=== PATIENT | female | born 1975 | race Caucasian/White ===

== ENCOUNTER → 2017-03-26 | Day surgery (SDC) | payer BC ==
[~2017-03-26] VITALS: Ht 147.3 cm; Wt 62.5 kg
[~2017-03-26] MED LIST: CALCIUM CARBON600 MG PO; PERCOCET 5-3251 EACH PO; THERA-VITE W/ B1 TAB PO
--- NOTE | ~2017-03-26 | OR ---
PATIENT'S NAME: KINGA [facility] AGE: 41 Y [address] ROOM: [place] [address] LOC[place]: [facility] [place] ADMIT DATE: 03/26/2017 OR/Procedure Report DISCHARGE DATE: FAMILY PHYSICIAN: Yamel Santiago MD ATTENDING PHYSICIAN: Francisco Marie SURGEON: Francisco Marie MD OPERATIONS AND MAINTENANCE SPECIALIST: DATE OF PROCEDURE: 03/26/2017 PREOPERATIVE DIAGNOSIS: Left ureteral calculus. POSTOPERATIVE DIAGNOSIS: Left ureteral calculus. PROCEDURE: 1. Cystoscopy and left retrograde. 2. Left ureteroscopy with laser lithotripsy and stone basket extractions. 3. Left ureteral stent placement. ANESTHESIA: Sedation. INDICATION: This 41-year-old lady experiencing her first episode of symptomatic stone disease. Her history of a gastric bypass is her main risk factor. She was seen over the weekend with acute symptoms and an 8 to 9 mm stone in the proximal 3rd. Given the choice of acute stenting over the weekend versus definitive intervention today, she opted to put up with it. She has had symptoms off and on. She was back in touch with Dr. Santiago with more pain. She presents for intervention. DESCRIPTION OF PROCEDURE: Having obtained her informed consent, the patient was taken to the operating room. She prepped and draped sterilely and in lithotomy position. IV sedation is administered. Our plan was to bump the stone back into the renal pelvis, stent her and proceed with elective lithotripsy. However, as we will see, her 8 to 9 mm stone has migrated all the way to the distal 3rd. Cystoscopy was undertaken. The urethra was unremarkable as is the bladder on careful examination using the 30 and 70-degree lenses. Under fluoroscopy, I then see a phlebolith in the left hemipelvis. We compared it to her CT scan, and it was present prior. Importantly, I do not see a density in the proximal 3rd as we would expect. We do see remnants from her gastric bypass surgery in the left upper quadrant. I injected some contrast in the left side. The faintly calcified stone is now in the distal 3rd and outlines nicely. PATIENT'S NAME: KINGA NEVES [facility] AGE: 41 Y [address] ROOM: [place] [address] LOC[place]: [facility] [place] ADMIT DATE: 03/26/2017 OR/Procedure Report DISCHARGE DATE: FAMILY PHYSICIAN: Yamel Santiago MD ATTENDING PHYSICIAN: Francisco Marie We therefore adjusted our plan. We will approach this ureteroscopically with laser lithotripsy rather than with the ESWL. A guidewire was passed. Over that, I passed a balloon dilator. The orifice and intramural tunnel were dilated. I then passed the semi-rigid ureteroscope. The stone was visualized as anticipated. Based on its size, it is too large to engage in a basket without breaking it up. Therefore, the holmium laser was prepared. A 400 micron fiber was passed. The stone is fragmented at a maximum energy of 600 mJ at 5 Hz. We broke the stone up in the number of pieces. Those were all extracted. Some of the larger pieces were sent for stone analysis. We now will have her ureter cleared. I can walk all the way up the dilated system to the proximal 3rd without tension. With the hydronephrosis and the lithotripsy with multiple extractions, I felt it prudent to stent her. Therefore, my safety wire was back loaded into the cystoscope. Over that, I passed a 4.8 multilink stent. We have a nice level of placement cystoscopically and fluoroscopically. The Dangler string is left in place. The patient tolerated the procedure well. Blood loss was negligible. The stone fragments are sent for analysis. The patient returned to the recovery in awake and stable condition. FRANCISCO MARIE MD [facility]/jackl /[id number] CC: Yamel Santiago MD d: 03/26/17 2049 t: 04/02/17 1023, OPERATIVE SUMMARY
[2017-03-26 10:11] LABS: BASOPHIL % 0.8 %; EOSINOPHIL # 0.1 K/uL (0.0-0.5); EOSINOPHIL % 1.8 %; HEMATOCRIT 34.3 % (33.0-46.0); HEMOGLOBIN 11.2 g/dL (10.0-15.0); IMMATURE GRANULOCYTE % 0.2 %; LYMPHOCYTE # 1.7 K/uL (0.8-4.0); LYMPHOCYTE % 33.6 %; MCH 30.2 pg (27.0-34.0); MCHC 32.7 gm/dL (32.0-36.5); MCV 92.5 fl (83.0-98.0); MONOCYTE # 0.4 K/uL (0.0-1.0); MONOCYTE % 8.4 %; MPV 10.8 fl (9.4-12.4); NEUTROPHIL # (ANC) 2.8 K/uL (1.8-7.8); NEUTROPHIL % 55.2 %; NRBC % 0 /100WBC (0-0.00); PLATELET COUNT 260 K/uL (150-450); RBC 3.71 M/uL (3.50-5.50); RDW-CV 12.2 % (11.9-14.6); WBC 5.1 K/uL (4.0-11.0)
[2017-03-26 10:42] LABS: ALBUMIN 3.5 gm/dL (3.5-5.0); ALK PHOS 161 IU/L (33-138); ALT 24 IU/L (12-78); ANION GAP 8.9 (10.0-19.0); AST 17 IU/L (10-40); BLOOD UREA NITROGEN 11 mg/dL (6-24); CALCIUM 8.4 mg/dL (8.5-10.5); CHLORIDE 110 mMol/L (96-110); CO2 27 mMol/L (22-32); CREATININE 0.7 mg/dL (0.5-1.1); POTASSIUM 3.9 mMol/L (3.7-5.1); SODIUM 142 mMol/L (135-145); TOTAL BILIRUBIN 0.3 mg/dL (0.0-1.5); TOTAL PROTEIN 6.9 g/dL (6.0-8.4)
== END | disposition disaster alternative care site (69) ==
LOC: GPOC 03-25 14:00 → GSDC 09:41 → GPOC 09:41
PROVIDERS: Urology
PROC: 0TF78ZZ Fragmentation in Left Ureter, Via Natural or Artificial Opening Endoscopic (ICD-10-PCS; principal; 2017-03-26)
PROC: 0T778DZ Dilation of Left Ureter with Intraluminal Device, Via Natural or Artificial Opening Endoscopic (ICD-10-PCS; 2017-03-26)
PROC: 0TC78ZZ Extirpation of Matter from Left Ureter, Via Natural or Artificial Opening Endoscopic (ICD-10-PCS; 2017-03-26)
DX: N13.2 Hydronephrosis with renal and ureteral calculous obstruction (principal); Z98.84 Bariatric surgery status; Z98.890 Other specified postprocedural states
CPT/HCPCS: C1725; C1769; C2617; J1100; J1956; J2001; J2405; J7120